=== PATIENT | female | born 1975 | race Caucasian/White ===

== ENCOUNTER 2019-02-15 10:06 | Day surgery (SDC) | payer OTHER ==
[~2019-02-15] VITALS: Ht 162.6 cm; Wt 105.2 kg
[~2019-02-15 10:06] MED LIST: ATOR20 PO; FENT50TP TOP; LORPSEER24; Percocet 5-3251 EACH PO; VARE1 PO; WARF7.5 PO
[2019-02-15] MEDS ORDERED: OMEPRAZOLE20 MG (10:56)
[2019-02-15] MEDS ORDERED: Flonase 0.05% N16 GM (10:57)
[2019-02-15] MEDS ORDERED: Percocet 5-3251 EACH (10:57)
[2019-02-15] MEDS ORDERED: ALBU90OI (10:58)
[2019-02-15] MEDS ORDERED: ONDA4ODT (10:58)
[2019-02-15] MEDS ORDERED: POTASSIUM99 MG (10:59)
[2019-02-15] MEDS ORDERED: TUMS500 MG (10:59)
[2019-02-15] MEDS ORDERED: GAVILAX8.5 GM (10:59)
== END 2019-02-15 12:25 | disposition home or self-care (01) ==
LOC: ORSCSDS 10:06
PROVIDERS: Internal Medicine Gastroenterology
PROC: 0D758ZZ Dilation of Esophagus, Via Natural or Artificial Opening Endoscopic (ICD-10-PCS; principal; 2019-02-15 12:15)
PROC: 0DB68ZX Excision of Stomach, Via Natural or Artificial Opening Endoscopic, Diagnostic (ICD-10-PCS; principal; 2019-02-15 12:15)
PROC: 0DB58ZX Excision of Esophagus, Via Natural or Artificial Opening Endoscopic, Diagnostic (ICD-10-PCS; principal; 2019-02-15 12:15)
DX: R10.13 Epigastric pain (principal); K22.2 Esophageal obstruction; K44.9 Diaphragmatic hernia without obstruction or gangrene; K31.89 Other diseases of stomach and duodenum; R13.10 Dysphagia, unspecified; R11.2 Nausea with vomiting, unspecified; F17.210 Nicotine dependence, cigarettes, uncomplicated; Z87.11 Personal history of peptic ulcer disease; Z79.01 Long term (current) use of anticoagulants; Z79.899 Other long term (current) drug therapy
CPT/HCPCS: 88305; 88342; C1726; J2704; J7120

== ENCOUNTER → 2019-07-09 | Outpatient (CLI) | payer OTHER ==
[~2019-07-09] MED LIST changes: +ALBU90OI; +Flonase 0.05% N16 GM; +GAVILAX8.5 GM; +OMEPRAZOLE20 MG; +ONDA4ODT; +POTASSIUM99 MG; +Percocet 5-3251 EACH; +TUMS500 MG
[2019-07-09 13:22] LABS: BASOPHILS ABSOLUTE AUTO 0.04 K/mm3 (0.00-0.23); BASOPHILS PERCENT AUTO 1 % (0-2); EOSINOPHILS ABSOLUTE AUTO 0.29 K/mm3 (0.00-0.68); EOSINOPHILS PERCENT AUTO 4 % (0-6); Hematocrit 39.6 % (33.0-51.0); Hemoglobin 13.2 g/dL (11.5-16.0); IMMATURE GRAN ABSOLUTE AUTO 0.03 K/mm3 (0.00-0.10); IMMATURE GRAN PERCENT AUTO 0 % (0-1); LYMPHOCYTES ABSOLUTE AUTO 1.49 K/mm3 (0.84-5.20); LYMPHOCYTES PERCENT AUTO 20 % (21-46); MONOCYTES ABSOLUTE AUTO 0.46 K/mm3 (0.16-1.47); MONOCYTES PERCENT AUTO 6 % (4-13); Mean Corpuscular HGB 29.4 pg (26.0-34.0); Mean Corpuscular HGB Conc 33.3 g/dL (31.5-36.5); Mean Corpuscular Volume 88 fL (80-100); Mean Platelet Volume 9.6 fL (9.1-12.4); NEUTROPHILS ABSOLUTE AUTO 5.31 K/mm3 (1.96-9.15); NEUTROPHILS PERCENT AUTO 70 % (41-73); Platelet Count 267 K/mm3 (150-400); RDW Coefficient Variation 13.1 % (11.7-14.2); RDW Standard Deviation 42.2 fL (35.1-46.3); Red Blood Cell Count 4.49 M/mm3 (3.80-5.20); White Blood Cell Count 7.62 K/mm3 (4.00-11.30)
[2019-07-09 13:26] LABS: Anion Gap 6 mmol/L (6-16); Blood Urea Nitrogen 11 mg/dL (8-24); Bun/Creatinine Ratio 13.6 (12.0-20.0); CO2, Blood 27 mmol/L (21-32); Calcium, Blood 8.9 mg/dL (8.5-10.1); Chloride, Blood 105 mmol/L (98-108); Creatinine, Blood 0.81 mg/dL (0.40-1.00); Glomerular Filtration Rate >60 (60-); Glucose, Blood 105 mg/dL (70-99); Potassium, Blood 4.3 mmol/L (3.5-5.5); Sodium, Blood 138 mmol/L (136-145)
[2019-07-09 14:04] LABS: International Normalized Ratio 3.15; Prothrombin Time Results 30.1 Sec (9.7-11.5)
== END ==
LOC: LAB SHORT 13:16 → LAB EV 13:16
PROVIDERS: Nurse Practitioner
DX: K62.5 Hemorrhage of anus and rectum (principal)
CPT/HCPCS: 80048; 85025; 85610

== ENCOUNTER → 2022-09-25 | Outpatient (CLI) | payer OTHER ==
[2022-09-25 10:31] LABS: BASOPHILS ABSOLUTE AUTO 0.04 K/mm3 (0.00-0.23); BASOPHILS PERCENT AUTO 0 % (0-2); EOSINOPHILS ABSOLUTE AUTO 0.05 K/mm3 (0.00-0.68); EOSINOPHILS PERCENT AUTO 0 % (0-6); Hematocrit 46.8 % (33.0-51.0); Hemoglobin 16.5 g/dL (11.5-16.0); IMMATURE GRAN ABSOLUTE AUTO 0.04 K/mm3 (0.00-0.10); IMMATURE GRAN PERCENT AUTO 0 % (0-1); LYMPHOCYTES ABSOLUTE AUTO 1.71 K/mm3 (0.84-5.20); LYMPHOCYTES PERCENT AUTO 13 % (21-46); MONOCYTES PERCENT AUTO 7 % (4-13); Mean Corpuscular HGB 32.3 pg (26.0-34.0); Mean Corpuscular HGB Conc 35.3 g/dL (31.5-36.5); Mean Corpuscular Volume 92 fL (80-100); Mean Platelet Volume 9.8 fL (9.1-12.4); NEUTROPHILS ABSOLUTE AUTO 10.46 K/mm3 (1.96-9.15); NEUTROPHILS PERCENT AUTO 79 % (41-73); Platelet Count 269 K/mm3 (150-400); RDW Coefficient Variation 13.2 % (11.7-14.2); RDW Standard Deviation 44.4 fL (35.1-46.3); Red Blood Cell Count 5.11 M/mm3 (3.80-5.20)
[2022-09-25 10:40] LABS: Albumin, Blood 4.5 g/dL (3.4-5.0); Albumin/Globulin Ratio 1.1 (0.8-1.8); Bilirubin, Total 1.5 mg/dL (0.1-1.0); Bun/Creatinine Ratio 15.1 (12.0-20.0); Calcium, Blood 9.7 mg/dL (8.5-10.1); Creatinine, Blood 0.73 mg/dL (0.40-1.00); Potassium, Blood 3.7 mmol/L (3.5-5.5); Total Protein, Blood 8.5 g/dL (6.4-8.2)
== END | disposition home or self-care (01) ==
LOC: LAB 10:25 → LAB SHORT 10:25
PROVIDERS: Physician Assistant Medical
DX: R10.9 Unspecified abdominal pain (principal)
CPT/HCPCS: 80053; 83690; 85025

== ENCOUNTER → 2023-05-21 | Outpatient (CLI) | payer OTHER ==
[2023-05-21 20:02] LABS: Creatinine, Urine Random 44.1 mg/dL (27.00-270.00); Protein, Urine Random 9.2 mg/dL (0.0-11.9); Protein/Creat Ratio, Ur Random 0.2
== END ==
LOC: LAB 17:31 → LAB SHORT 17:31
PROVIDERS: Family Medicine
DX: R60.0 Localized edema (principal)
CPT/HCPCS: 82570; 84156

== ENCOUNTER 2023-09-03 07:53 | Day surgery (SDC) | payer OTHER ==
[~2023-09-03] VITALS: Ht 162.6 cm; Wt 99.1 kg
[~2023-09-03 07:53] MED LIST changes: +BREO ELLIPTA 11 EAC1 IH; +FENOFIBRATE40 MG PO; +FLUT.05NI; -Flonase 0.05% N16 GM; +HYDCHL12.5 PO; +LORA10ER PO; +MELO7.5 PO; +METO5A PO; +ONDA4 PO; +ROSU10TA PO; +XARELTO20 MG PO
[2023-09-03 08:41] VITALS: BP 138/95
--- NOTE | 2023-09-03 08:51 | NUR ---
Ambulatory in Day Surgery History, Chart, Medications and Allergies reviewed before start of procedure. Pre-Op teaching done. Pt verbalizes understanding. Patient States Post-Procedure ride home has been arranged.
--- NOTE | 2023-09-03 09:11 | NUR ---
09/03/23 0911 Tammi Valencia History, Chart, Medications and Allergies reviewed before start of procedure. Patient confirms NPO status and agrees with scheduled surgery. O2 VIA POM MASK INTACT THROUGHOUT SEDATION/PROCEDURE. See Anesthesia record
[2023-09-03 10:16] VITALS: BP 134/99
[2023-09-03 10:30] VITALS: BP 126/83
--- NOTE | 2023-09-03 10:51 | NUR ---
Patient up to Ambulate independently. Gait steady. Patient States Post-Procedure ride home has been arranged. Discharge instructions reviewed with patient. Patient verbalizes understanding. Copy given to patient to take home. Discharged via wheelchair to private car for ride home. PT REPORTS PAINFUL BUT HAS CHRONIC PAIN.PT REPORTS READY TO GO HOME. PT APPEARS TO BE COMFORTABLE, EVEN WHILE GETTING DRESSED. PT REPORTS WILL CONTACT DR IF PAIN DOES NOT GET BETTER HE STATED.
== END 2023-09-03 10:51 | disposition home or self-care (01) ==
LOC: ORSCMMR 07:53 → ORD 08:45 → ORSCMMR 08:45
PROVIDERS: Internal Medicine Gastroenterology
PROC: 0W3P8ZZ Control Bleeding in Gastrointestinal Tract, Via Natural or Artificial Opening Endoscopic (ICD-10-PCS; principal; 2023-09-03 08:45)
PROC: 0DBN8ZX Excision of Sigmoid Colon, Via Natural or Artificial Opening Endoscopic, Diagnostic (ICD-10-PCS; principal; 2023-09-03 08:45)
PROC: 0DB48ZX Excision of Esophagogastric Junction, Via Natural or Artificial Opening Endoscopic, Diagnostic (ICD-10-PCS; principal; 2023-09-03 08:45)
PROC: 0DB78ZX Excision of Stomach, Pylorus, Via Natural or Artificial Opening Endoscopic, Diagnostic (ICD-10-PCS; principal; 2023-09-03 08:45)
DX: Z12.11 Encounter for screening for malignant neoplasm of colon (principal); K22.70 Barrett's esophagus without dysplasia; K21.9 Gastro-esophageal reflux disease without esophagitis; I78.0 Hereditary hemorrhagic telangiectasia; J45.909 Unspecified asthma, uncomplicated; F17.210 Nicotine dependence, cigarettes, uncomplicated; E66.9 Obesity, unspecified; Z68.37 Body mass index [BMI] 37.0-37.9, adult; Z79.899 Other long term (current) drug therapy; Z79.01 Long term (current) use of anticoagulants
CPT/HCPCS: 88305; 88341; 88342; J2001; J2704; J7120

== ENCOUNTER 2024-11-15 09:13 | Day surgery (SDC) | payer OTHER ==
[2024-11-15] VITALS (14 sets, daily range): BP systolic 90–139; BP diastolic 57–87
[~2024-11-15] VITALS: Ht 160 cm; Wt 107.3 kg
[~2024-11-15 09:13] MED LIST changes: +ALBU90OI INH; +AMPDEX10CR PO; +ASCORBIC ACID500 MG PO; +Acetaminophen 500 MG Tab PO SCH; +CALCIUM 250-D1 EAC1 PO; +CeFAZolin Sodium 2,000 MG in NS 100 ML IV SCH; +Chlorhexidine Mouth Care 15 ML UDC MT SCH; +Crestor40 MG PO; +FISH OIL 1,0001 EA10 PO; +LOSA25 PO; +Lactated Ringer's 1,000 ML IV SCH; +OMEP20ER PO; -OMEPRAZOLE20 MG; +ONE-A-DAY WOME0.4 MG PO; +OxyCODONE HCL 10 MG TABCR PO SCH; +POTA10T PO; -POTASSIUM99 MG; +Ropivacaine 0.5% HCl/Pf 123.125 MG,EPINEPHrine HCL 0.25 MG,Ketorolac Tromethamine 15 MG... INFIL SCH; +SUPER B-50 COM1 EACH PO; +TM-VITE RX T1000 MCG PO; +Tranexamic Acid 1,000 MG in NS 100 ML IV SCH; +VITAMIN D310 MC4 PO
[2024-11-15] MEDS ORDERED: propofoL 60 ML IV ONE (09:19)
[2024-11-15] MEDS ORDERED: Midazolam HCl 1MG / ML 2ML Vial ONE ×2 (09:20→11:12)
[2024-11-15] MEDS ORDERED: VITAMIN D350 MC3 PO (09:34)
[2024-11-15] MEDS ORDERED: CALCIUM 600 +1 EA11 PO (09:35)
--- NOTE | 2024-11-15 10:16 | NUR ---
PATIENT ACCOMPANIED TO DAY SURGERY WITH SIGNIFICANT OTHER, DOROTHY, WHO WAS GIVEN PATIENT'S CANE.
[2024-11-15] MEDS ORDERED: HydroCHLOROthiazide 25 mg Tab PO PRN (11:25)
[2024-11-15] MEDS ORDERED: Ondansetron 4 MG TAB PO PRN (11:30)
[2024-11-15] MEDS ORDERED: Metoclopramide HCl 10 MG Tab PO PRN (11:30)
[2024-11-15] MEDS ORDERED: OxyCODONE 5 mg/Acetamin 325 mg TABLET PO PRN (11:30)
[2024-11-15] MEDS ORDERED: DiphenhydrAMINE HCL 25 MG Cap PO PRN (11:30)
[2024-11-15] MEDS ORDERED: Bisacodyl 10 MG Supp PR PRN (11:30)
[2024-11-15] MEDS ORDERED: Lactated Ringer's 1,000 ML IV SCH (11:30)
[2024-11-15] MEDS ORDERED: Metoclopramide HCl 5MG / ML 2ML Vial IV PRN (11:35)
[2024-11-15] MEDS ORDERED: Ondansetron HCl 2 MG / ML 2ML Vial IV PRN (11:35)
[2024-11-15] MEDS ORDERED: Promethazine HCl 25 MG Tab PO PRN (11:35)
[2024-11-15] MEDS ORDERED: OxyCODONE HCL 5 MG TAB PO PRN ×2 (11:35)
[2024-11-15] MEDS ORDERED: Magnesium Hydroxide Conc 10 ML UDC PO PRN (11:40)
[2024-11-15] MEDS ORDERED: HYDROmorphone HCl/Pf 1MG SYR IV PRN (11:40)
[2024-11-15] MEDS ORDERED: FLU VACC TS2024-25(6MOS UP)/PF 45 MCG/0.5 ML SYRINGE IM SCH (11:40)
[2024-11-15] MEDS ORDERED: Glycopyrrolate 0.2 MG/ML 5ML VIAL ONE (11:47)
[2024-11-15] MEDS ORDERED: propofoL 20 ML IV ONE ×2 (11:52→13:06)
[2024-11-15] MEDS ORDERED: propofoL 100 ML IV ONE (11:54)
[2024-11-15] MEDS ORDERED: Albuterol HFA200 ACT/6.7 GM INH INH PRN (12:05)
[2024-11-15] MEDS ORDERED: Phenylephrine HCl 100 MCG/ML-NS 10MLSYR (1MG/10ML) ONE (13:04)
[2024-11-15] MEDS ORDERED: FentaNYL Citrate 50 MCG/ML 2 ML Injection ONE (13:35)
[2024-11-15] MEDS ORDERED: HYDROmorphone HCl/Pf 1MG SYR ONE (13:51)
--- NOTE | 2024-11-15 14:45 | NUR ---
PT ARRIVED TO RM 220 FROM PACU AT APPROXIMATELY 1430. PT REPORTED 4/10 L KNEE PAIN AND CHRONIC BACK PAIN. POLAR PACK IN PLACE FOR COMFORT. L KNEE DRESSING C/D/I. PT EDUCATED TO USE THE CALL LIGHT.
[2024-11-15] MEDS ORDERED: Acetaminophen 500 MG Tab PO SCH (16:00)
[2024-11-15] MEDS ORDERED: Ketorolac Tromethamine 15mg Vial IV SCH (18:00)
--- NOTE | 2024-11-15 19:23 | NUR ---
SHIFT SUMMARY PT IS POD#0 FROM L TKA WITH DR. WAHL. PAIN MANAGED WITH PO PAIN MEDICATION. PT TOLERATING A REGULAR DIET. PT STATES THAT HER BUTTOCKS STILL FEELS NUMB, SHE DOES REPORT NUMBNESS TO DIFFERENT PARTS OF HER BODY R/T HX OF NERVE DAMAGE. SHE IS ABLE TO MOVE ALL HER EXTREMITIES. SHE WAS ABLE TO STAND AND PIVOT TRANSFER FROM BED TO BSC THE TO THE RECLINER. PT USES HER CALL LIGHT APPROPRIATELY. BEDSIDE REPORT GIVEN TO NAWAF RESENDEZ.
[2024-11-15] MEDS ORDERED: CeFAZolin Sodium 2,000 MG in NS 100 ML IV SCH (20:00)
[2024-11-15] MEDS ORDERED: Docusate Sodium 100 MG Cap PO SCH (21:00)
[2024-11-16 04:30] VITALS: BP 111/75
[2024-11-16 05:09] LABS: BASOPHILS ABSOLUTE AUTO 0.02 K/mm3 (0.00-0.23); BASOPHILS PERCENT AUTO 0 % (0-2); EOSINOPHILS ABSOLUTE AUTO 0.29 K/mm3 (0.00-0.68); EOSINOPHILS PERCENT AUTO 5 % (0-6); Hematocrit 31.1 % (33.0-51.0); Hemoglobin 10.9 g/dL (11.5-16.0); IMMATURE GRAN ABSOLUTE AUTO 0.02 K/mm3 (0.00-0.10); IMMATURE GRAN PERCENT AUTO 0 % (0-1); LYMPHOCYTES ABSOLUTE AUTO 1.59 K/mm3 (0.84-5.20); LYMPHOCYTES PERCENT AUTO 25 % (21-46); MONOCYTES ABSOLUTE AUTO 0.56 K/mm3 (0.16-1.47); MONOCYTES PERCENT AUTO 9 % (4-13); Mean Corpuscular HGB 31.4 pg (26.0-34.0); Mean Corpuscular Volume 90 fL (80-100); Mean Platelet Volume 9.6 fL (9.1-12.4); NEUTROPHILS ABSOLUTE AUTO 4.02 K/mm3 (1.96-9.15); NEUTROPHILS PERCENT AUTO 62 % (41-73); Platelet Count 196 K/mm3 (150-400); Red Blood Cell Count 3.47 M/mm3 (3.80-5.20)
[2024-11-16 05:48] LABS: Bun/Creatinine Ratio 29.9 (12.0-20.0); Calcium, Blood 8.9 mg/dL (8.5-10.1); Creatinine, Blood 0.6 mg/dL (0.40-1.00); Magnesium, Blood 1.6 mg/dL (1.6-2.4); Potassium, Blood 3.4 mmol/L (3.5-5.5)
[2024-11-16] MEDS ORDERED: Omeprazole 20 MG CapCR PO SCH (06:00)
--- NOTE | 2024-11-16 06:09 | NUR ---
SHIFT SUMMARY POD 1 L TKA. NO ACUTE CHANGES OVERNIGHT. VSS. TOLERATING ORALS, DENIES N/V. VOIDING. AMBULATES USING FWW c GB & SBA. AQUACEL C/D/I. PT REPORTS INCREASED PAIN OVERNIGHT, MEDICATED PER EMAR, POLAR PACK IN USE. PT DRESSED & RESTING IN CHAIR c LEs ELEVATED. CALL LIGHT IN REACH, WILL REPORT TO DAY RN.
[2024-11-16 07:24] VITALS: BP 122/84
[2024-11-16] MEDS ORDERED: Losartan Potassium 50 MG Tab PO SCH (09:00)
[2024-11-16] MEDS ORDERED: Potassium Chloride 10 Meq Tablet SA PO SCH (09:00)
[2024-11-16] MEDS ORDERED: Loratadine 10 MG Tab PO SCH (09:00)
[2024-11-16] MEDS ORDERED: Fluticasone 0.05% Nasal Spray SCH (09:00)
[2024-11-16] MEDS ORDERED: Rosuvastatin Calcium 10 MG Tab PO SCH (09:00)
[2024-11-16] MEDS ORDERED: Amphet Asp/Amphet/D-Amphet 10 MG CapCR PO SCH ×2 (09:00→12:00)
[2024-11-16] MEDS ORDERED: Rivaroxaban 10 MG Tab PO SCH (09:00)
[2024-11-16] MEDS ORDERED: Fenofibrate 67 MG Cap PO SCH (09:00)
[2024-11-16] MEDS ORDERED: DOCU100 PO (09:40)
[2024-11-16] MEDS ORDERED: ACET500 PO (09:40)
--- NOTE | 2024-11-16 11:47 | NUR ---
DISCHARGE PT WORKED w/ THERAPY. PAIN REASONABLY CONTROLLED. EATING, DRINKING, & VOIDING WELL. MISHA & POLAR PACK SENT w/ PT. ESCORTED OUT VIA W/C.
== END 2024-11-16 11:42 | disposition home or self-care (01) ==
LOC: ORSCMMR 09:13 → ORD 10:30 → ORSCMMR 11:00 → SURS 14:45 → ORD 15:45 → ORSCMMR 11-16 11:42
PROVIDERS: Orthopaedic Surgery
PROC: 8E0Y3CZ Robotic Assisted Procedure of Lower Extremity, Percutaneous Approach (ICD-10-PCS; principal; 2024-11-16)
PROC: 0SRD0JA Replacement of Left Knee Joint with Synthetic Substitute, Uncemented, Open Approach (ICD-10-PCS; principal; 2024-11-16)
DX: M17.12 Unilateral primary osteoarthritis, left knee (principal); F90.9 Attention-deficit hyperactivity disorder, unspecified type; F41.9 Anxiety disorder, unspecified; M41.9 Scoliosis, unspecified; Z86.718 Personal history of other venous thrombosis and embolism; Z79.01 Long term (current) use of anticoagulants; I10 Essential (primary) hypertension; E78.00 Pure hypercholesterolemia, unspecified; Z87.891 Personal history of nicotine dependence; Z79.899 Other long term (current) drug therapy
CPT/HCPCS: 27447; 0055T; 36415; 73560-LT; 80048; 83735; 85025; 97116; 97162; 97530; A9270; C1776; J0171; J0690; J0735; J1171; J1885; J2250; J2371; J2704; J2765; J2795; J3010; J7120

== ENCOUNTER 2024-11-21 16:40 | Emergency (ER) | payer OTHER ==
[~2024-11-21] VITALS: Ht 160 cm; Wt 104.3 kg
[~2024-11-21 16:40] MED LIST changes: +ACET500 PO; -Acetaminophen 500 MG Tab PO SCH; +CALCIUM 600 +1 EA11 PO; -CeFAZolin Sodium 2,000 MG in NS 100 ML IV SCH; -Chlorhexidine Mouth Care 15 ML UDC MT SCH; +DOCU100 PO; -Lactated Ringer's 1,000 ML IV SCH; -OxyCODONE HCL 10 MG TABCR PO SCH; -Ropivacaine 0.5% HCl/Pf 123.125 MG,EPINEPHrine HCL 0.25 MG,Ketorolac Tromethamine 15 MG... INFIL SCH; -Tranexamic Acid 1,000 MG in NS 100 ML IV SCH; +VITAMIN D350 MC3 PO
[2024-11-21 17:33] LABS: BASOPHILS ABSOLUTE AUTO 0.05 K/mm3 (0.00-0.23); BASOPHILS PERCENT AUTO 1 % (0-2); EOSINOPHILS ABSOLUTE AUTO 0.73 K/mm3 (0.00-0.68); EOSINOPHILS PERCENT AUTO 7 % (0-6); Hematocrit 40.2 % (33.0-51.0); Hemoglobin 13.8 g/dL (11.5-16.0); IMMATURE GRAN ABSOLUTE AUTO 0.04 K/mm3 (0.00-0.10); IMMATURE GRAN PERCENT AUTO 0 % (0-1); LYMPHOCYTES ABSOLUTE AUTO 2.14 K/mm3 (0.84-5.20); LYMPHOCYTES PERCENT AUTO 21 % (21-46); MONOCYTES ABSOLUTE AUTO 0.74 K/mm3 (0.16-1.47); MONOCYTES PERCENT AUTO 7 % (4-13); Mean Corpuscular HGB 30.4 pg (26.0-34.0); Mean Corpuscular HGB Conc 34.3 g/dL (31.5-36.5); Mean Corpuscular Volume 89 fL (80-100); Mean Platelet Volume 9.6 fL (9.1-12.4); NEUTROPHILS ABSOLUTE AUTO 6.41 K/mm3 (1.96-9.15); NEUTROPHILS PERCENT AUTO 63 % (41-73); Platelet Count 385 K/mm3 (150-400); RDW Coefficient Variation 12.4 % (11.7-14.2); RDW Standard Deviation 39.8 fL (35.1-46.3); Red Blood Cell Count 4.54 M/mm3 (3.80-5.20); White Blood Cell Count 10.11 K/mm3 (4.00-11.30)
[2024-11-21] MEDS ORDERED: OxyCODONE HCL 5 MG TAB PO ONE (18:05)
[2024-11-21 18:15] LABS: Albumin, Blood 3.7 g/dL (3.4-5.0); Albumin/Globulin Ratio 0.8 (0.8-1.8); Bilirubin, Total 0.6 mg/dL (0.1-1.0); Calcium, Blood 10.6 mg/dL (8.5-10.1); Creatinine, Blood 0.53 mg/dL (0.40-1.00); Globulin, Blood 4.8 g/dL (2.2-4.0); Potassium, Blood 4.1 mmol/L (3.5-5.5); Total Protein, Blood 8.5 g/dL (6.4-8.2)
[2024-11-21 18:30] VITALS: BP 117/62
== END 2024-11-21 18:40 | disposition home or self-care (01) ==
LOC: ER 16:40
PROVIDERS: Physician Assistant
DX: M96.830 Postprocedural hemorrhage of a musculoskeletal structure following a musculoskeletal system procedure (principal); Z96.652 Presence of left artificial knee joint; F17.200 Nicotine dependence, unspecified, uncomplicated; Z79.620 Long term (current) use of immunosuppressive biologic; Z79.899 Other long term (current) drug therapy; Z79.01 Long term (current) use of anticoagulants; Z79.02 Long term (current) use of antithrombotics/antiplatelets; Z88.1 Allergy status to other antibiotic agents
CPT/HCPCS: 73562-LT; 80053; 85025; 99283-25; A9270

== ENCOUNTER → 2025-01-19 | Outpatient (CLI) | payer OTHER | END | disposition home or self-care (01) | LOC: LAB 18:45 → LAB SHORT 18:45 | DX: N91.2 Amenorrhea, unspecified (principal) | CPT/HCPCS: 83001 ==

== ENCOUNTER 2025-08-26 17:54 | Emergency (ER) | payer OTHER ==
[~2025-08-26] VITALS: Ht 160 cm; Wt 107.0 kg
[2025-08-26 18:39] LABS: BASOPHILS ABSOLUTE AUTO 0.04 K/mm3 (0.00-0.23); BASOPHILS PERCENT AUTO 0 % (0-2); EOSINOPHILS ABSOLUTE AUTO 0.18 K/mm3 (0.00-0.68); EOSINOPHILS PERCENT AUTO 2 % (0-6); Hematocrit 41.8 % (33.0-51.0); Hemoglobin 15.0 g/dL (11.5-16.0); IMMATURE GRAN ABSOLUTE AUTO 0.03 K/mm3 (0.00-0.10); IMMATURE GRAN PERCENT AUTO 0 % (0-1); LYMPHOCYTES ABSOLUTE AUTO 2.13 K/mm3 (0.84-5.20); LYMPHOCYTES PERCENT AUTO 24 % (21-46); MONOCYTES ABSOLUTE AUTO 0.64 K/mm3 (0.16-1.47); MONOCYTES PERCENT AUTO 7 % (4-13); Mean Corpuscular HGB Conc 35.9 g/dL (31.5-36.5); Mean Corpuscular Volume 92 fL (80-100); NEUTROPHILS ABSOLUTE AUTO 5.99 K/mm3 (1.96-9.15); NEUTROPHILS PERCENT AUTO 67 % (41-73); NRBC ABSOLUTE 0.00 K/mm3 (0.00-0.02); NRBC Auto 0.0 /100 WBC (0.0-0.2); Platelet Count 232 K/mm3 (150-400); RDW Coefficient Variation 14.3 % (11.7-14.2); RDW Standard Deviation 47.5 fL (35.1-46.3)
[2025-08-26 19:05] LABS: Alanine Aminotransfer (ALT/SGP 84.0 U/L (12-78); Albumin, Blood 4.1 g/dL (3.4-5.0); Albumin/Globulin Ratio 1.1 (0.8-1.8); Anion Gap 9.0 mmol/L (3-11); Aspartate Aminotrans (AST/SGOT 54.0 U/L (12-37); Bilirubin, Total 1.0 mg/dL (0.1-1.0); Blood Urea Nitrogen 11.0 mg/dL (8-24); CO2, Blood 25.0 mmol/L (21-32); Calcium, Blood 9.4 mg/dL (8.5-10.1); Chloride, Blood 103.0 mmol/L (98-108); Creatinine, Blood 0.6 mg/dL (0.40-1.00); Globulin, Blood 3.6 g/dL (2.2-4.0); Glucose, Blood 105.0 mg/dL (70-99); Potassium, Blood 3.0 mmol/L (3.5-5.5); Sodium, Blood 134.0 mmol/L (136-145); Total Protein, Blood 7.7 g/dL (6.4-8.2)
[2025-08-26] MEDS ORDERED: Albuterol 2.5 MG/3 ML VIAL INH SCH (21:05)
[2025-08-26 21:24] LABS: Magnesium, Blood 1.5 mg/dL (1.6-2.4); Thyroid Stimulating Hormone 1.51 uIU/mL (0.360-4.800)
[2025-08-26 22:52] VITALS: BP 148/76
== END 2025-08-26 22:53 | disposition home or self-care (01) ==
LOC: ER 17:54
PROVIDERS: Emergency Medicine
DX: R07.89 Other chest pain (principal); R06.02 Shortness of breath; E87.6 Hypokalemia; E83.42 Hypomagnesemia; Z79.01 Long term (current) use of anticoagulants; R74.01 Elevation of levels of liver transaminase levels; F17.200 Nicotine dependence, unspecified, uncomplicated; Z79.51 Long term (current) use of inhaled steroids; Z79.899 Other long term (current) drug therapy; Z88.1 Allergy status to other antibiotic agents
CPT/HCPCS: 71046; 71260; 80053; 83735; 83880; 84443; 84484; 85025; 93005; 93010; 99285-25; A9270; Q9967

== ENCOUNTER → 2025-09-08 | Outpatient (CLI) | payer OTHER ==
[2025-09-08 19:48] LABS: Alanine Aminotransfer (ALT/SGP 156.0 U/L (12-78); Albumin, Blood 3.9 g/dL (3.4-5.0); Albumin/Globulin Ratio 1.1 (0.8-1.8); Anion Gap 9.0 mmol/L (3-11); Aspartate Aminotrans (AST/SGOT 118.0 U/L (12-37); Bilirubin, Total 0.5 mg/dL (0.1-1.0); Blood Urea Nitrogen 16.0 mg/dL (8-24); CO2, Blood 26.0 mmol/L (21-32); Calcium, Blood 9.5 mg/dL (8.5-10.1); Chloride, Blood 106.0 mmol/L (98-108); Creatinine, Blood 0.52 mg/dL (0.40-1.00); Globulin, Blood 3.7 g/dL (2.2-4.0); Glucose, Blood 109.0 mg/dL (70-99); Magnesium, Blood 1.9 mg/dL (1.6-2.4); Potassium, Blood 3.8 mmol/L (3.5-5.5); Sodium, Blood 137.0 mmol/L (136-145); Total Protein, Blood 7.6 g/dL (6.4-8.2)
== END ==
LOC: LAB 15:31 → LAB SHORT 15:31
PROVIDERS: Family Medicine
DX: E83.42 Hypomagnesemia (principal); E87.6 Hypokalemia
CPT/HCPCS: 80053; 83735